=== PATIENT | male | born 1985 | race Caucasian/White ===

== ENCOUNTER 2019-04-30 17:34 | Emergency (ER) | payer OTHER ==
[~2019-04-30] VITALS: Ht 177.8 cm; Wt 95.3 kg
--- NOTE | 2019-04-30 17:49 | NUR ---
did not want to be seen
[2019-04-30 18:07] VITALS: BP 135/93
--- NOTE | 2019-04-30 18:14 | NUR ---
PATIENT AMBULATED TO BED 6 AT THIS TIME.
--- NOTE | 2019-04-30 18:25 | NUR ---
33/M brought and dropped off by friend for requesting detoxication from alcohol. pt is slow to respond all questions---oriented to name, ER, month and year, and to detox for reason is not sure when his last drink was, no tremors noted, ambulatory with slow guarded gait.diaphoretic. PATIENT POSITIONED FOR COMFORT; HOB ELEVATED; BEDRAILS UP X2; BED DOWN. ER MD MADE AWARE OF PT STATUS.
--- NOTE | 2019-04-30 19:11 | NUR ---
Pt report given to BRITTANY MOORE. Transfer of care at this time.
--- NOTE | 2019-04-30 19:15 | NUR ---
RECEIVED REPORT FROM TERESA MUNIZ. ASSUMED CARE AT THIS TIME.
[2019-04-30] MEDS ORDERED: NACL 0.9% 1,000 ML IV ONE (19:45)
--- NOTE | 2019-04-30 19:45 | NUR ---
PT AWAKE AND ALERT. SEEN LYING IN BED WITH EYES OPEN. VSS AT THIS TIME. BEDRAILS X2 UP. WILL CONTINUE TO MONITOR.
[2019-04-30 20:51] LABS: BARBITURATE, URINE NEG. ng/ml (NEG <=200); BENZODIAZEPINE, URINE NEG. ng/mL (NEG <=200); CANNABINOID, URINE NEG. ng/mL (NEG <=50); COCAINE, URINE NEG. ng/mL (NEG <=300); OPIATE, URINE NEG. ng/mL (NEG <=2000); PHENCYCLIDINE SCREEN,URINE NEG. ng/mL (NEG <=25)
[2019-04-30 20:52] LABS: BASOPHILS # (AUTO) 0.1 K/uL (0.00-0.22); BASOPHILS % (AUTO) 0.9 % (0.0-2.0); EOSINOPHILS % (AUTO) 0.3 % (0.0-4.0); HEMATOCRIT 45.7 % (36-52); HEMOGLOBIN 15.3 g/dL (12.0-18.0); LYMPHOCYTES # (AUTO) 1.5 K/uL (2.0-11.5); LYMPHOCYTES % (AUTO) 18.8 % (20.5-51.1); MEAN CORPUSCULAR HEMOGLOBIN 30 pg (27-31); MEAN CORPUSCULAR HGB CONC 33 g/dL (33-37); MEAN CORPUSCULAR VOLUME 90.1 fL (80-94); MONOCYTES # (AUTO) 0.9 K/uL (0.8-1.0); MONOCYTES % (AUTO) 11.5 % (1.7-9.3); NEUTROPHILS # (AUTO) 5.3 K/uL (1.8-7.7); NEUTROPHILS % (AUTO) 68.5 % (42.2-75.2); PLATELET COUNT (AUTO) 269 K/uL (140-450); RED BLOOD CELL COUNT(AUTO) 5.07 MIL/uL (4.20-6.10); RED CELL DISTRIBUTION WIDTH 14.3 % (11.6-13.7); WHITE BLOOD COUNT (AUTO) 7.8 K/uL (4.8-10.8)
[2019-04-30 20:54] LABS: ANION GAP 15.6 (8-16); CARBON DIOXIDE 27.3 mmol/L (21-32); CHLORIDE 105 mmol/L (98-107); CREATININE 1.1 mg/dL (0.7-1.3); GFR ARICAN-AMERICAN 98 mL/min (>90); GLUCOSE 116 mg/dL (74-106); POTASSIUM 3.9 mmol/L (3.5-5.1); SODIUM SERUM 144 mmol/L (136-145); UREA NITROGEN, BLOOD 8 mg/dL (7-18)
[2019-04-30 21:00] LABS: ALBUMIN 3.8 g/dL (3.4-5.0); ASPARTATE AMINOTRANSFERASE 172 U/L (15-37); TOTAL BILIRUBIN 0.8 mg/dL (0.0-1.0)
--- NOTE | 2019-04-30 21:00 | NUR ---
PT AWAKE. PER PT "I FEEL A LITTLE BETTER." VSS AT THIS TIME. WILL CONTINUE TO MONITOR.
[2019-04-30 21:01] LABS: SALICYLATE < 2.8 mg/dL (2.8-20.0)
[2019-04-30 21:14] LABS: ACETAMINOPHEN < 0.5 ug/ml (10-30)
--- NOTE | 2019-04-30 22:08 | NUR ---
Patient discharged with v/s stable. Written and verbal after care instructions given and explained. Patient alert, oriented and verbalized understanding of instructions. Ambulatory with steady gait. All questions addressed prior to discharge. ID band removed. Provided with substance abuse resources. Patient advised to follow up with PMD. Rx of Xanax given. Patient educated on indication of medication including possible reaction and side effects. Opportunity to ask questions provided and answered.
[2019-04-30 22:09] VITALS: BP 136/81
== END 2019-04-30 22:08 | disposition home or self-care (01) ==
LOC: MED 17:34
DX: F10.239 Alcohol dependence with withdrawal, unspecified (principal); Z71.41 Alcohol abuse counseling and surveillance of alcoholic; Y90.0 Blood alcohol level of less than 20 mg/100 ml
CPT/HCPCS: 36415; 80053; 80305; 82948; 85025; 93005; 99284; G0480; G0482; J7030